=== PATIENT | male | born 1935 | race Caucasian/White ===

== ENCOUNTER 2020-04-23 19:24 | Inpatient (IN) | payer OTHER ==
[~2020-04-23] VITALS: Ht 182.9 cm; Wt 101.7 kg
[2020-04-23 19:38] VITALS: BP 206/102
[2020-04-23 20:09] LABS: ABSOLUTE BASOPHILS 0.1 thou/uL (0.0-0.2); ABSOLUTE EOSINOPHILS 0.2 thou/uL (0.0-0.7); ABSOLUTE LYMPHOCYTES 0.9 thou/uL (0.8-5.3); ABSOLUTE MONOCYTES 0.7 thou/uL (0.0-1.2); ABSOLUTE NEUTROPHILS 5.8 thou/uL (1.6-8.1); EOSINOPHILS 2.8 %; HEMATOCRIT 40.5 % (42.0-52.0); HEMOGLOBIN 13.7 gm/dL (14.0-18.0); LYMPHOCYTES 12.3 %; MCHC 33.9 g/dL (28.0-37.0); MCV 88.4 fL (80.0-100.0); MONOCYTES 8.8 %; MPV 8.6 fl. (7.2-11.1); NUCLEATED RBCS 0 /100WBC; PLATELET COUNT* 166 thou/uL (150-400); POLYS 75.1 %; RBC 4.58 mil/uL (4.50-6.00); WBC 7.7 thou/uL (4.0-11.0)
[2020-04-23 20:11] LABS: CALCIUM 7.9 mg/dL (8.5-10.1); CREATININE 1.5 mg/dL (0.6-1.3); INR 1.1; POTASSIUM 3.8 mmol/L (3.5-5.1); PROTIME 10.9 Seconds (9.20-11.50)
[2020-04-23 20:16] LABS: ALBUMIN 3.1 g/dL (3.4-5.0); TOTAL BILIRUBIN 0.2 mg/dL (<0.1-1.0); TOTAL PROTEIN 6.6 g/dL (6.4-8.2)
[2020-04-23 21:45] LABS: URINE BILIRUBIN NEGATIVE (Negative); URINE BLOOD 1+ (Negative); URINE CLARITY CLEAR; URINE COLOR YELLOW; URINE GLUCOSE-RANDOM 2+ (Negative); URINE KETONES NEGATIVE (Negative); URINE LEUKOCYTES-REFLEX NEGATIVE (Negative); URINE NITRITE-REFLEX NEGATIVE (Negative); URINE PROTEIN NEGATIVE (Negative); URINE SPECIFIC GRAVITY 1.015 (1.005-1.030); URINE UROBILINOGEN 0.2 E.U./dl (0.2-1.0)
[2020-04-23 22:19] LABS: BACTERIA-REFLEX None Seen /HPF (None Seen); CASTS None Seen /LPF (None Seen); CRYSTALS None Seen /LPF (None Seen); SQUAMOUS 0-3 Few /LPF (0-3); URINE RBC 3-10 Few /HPF (0-2); URINE WBC-REFLEX None Seen /HPF (0-5)
[2020-04-24 01:35] VITALS: BP 171/90
[2020-04-24 02:30] VITALS: BP 166/80
--- NOTE | 2020-04-24 07:46 | NUR ---
RECIEVED REPORT FROM JOAQUIM SPRINGER. PT TRANSFERRED TO 232. PT A&OX4. VSS. ADMISSION HISTORY & PHYSICAL ASSESSMENT COMPLETED AND CHARTED. ORIENTED TO ROOM & CALL LIGHT. PT ON RA. PT ON MEDSURG STATUS. PT COMPLAINED OF RIGHT HIP & BACK PAIN-MED GIVEN PER MAR. FALL PRECAUTIONS IN PLACE. CALL LIGHT WITHIN REACH.
[2020-04-24 07:55] VITALS: BP 204/106
[2020-04-24] MEDS ORDERED: LIPITOR 20 MG T20 M1 PO (10:13)
[2020-04-24] MEDS ORDERED: METFORMIN HCL500 M3 PO (10:13)
[2020-04-24] MEDS ORDERED: ASA81BEC PO (10:14)
[2020-04-24] MEDS ORDERED: PROSCAR 5MG TABL5 M1 PO (10:15)
[2020-04-24] MEDS ORDERED: FLOMAX0.4 MG PO (10:16)
[2020-04-24] MEDS ORDERED: GLIPIZIDE 10 MG10 MG PO ×2 (10:16→10:17)
[2020-04-24] MEDS ORDERED: MYSOLINE50 MG PO (10:18)
[2020-04-24] MEDS ORDERED: DILTIAZEM ER180 M2 PO (10:18)
--- NOTE | 2020-04-24 11:42 | EKG ---
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: : 1935 Requested By: Tara Smith Order Number: [id number] MD: Tuan Arredondo Measurements Intervals [place] Rate: 78 P: 63 W[place]: 185 QRS: 62 QRSD: 115 T: 44 QT: 432 QTc: 493 Interpretive Statements Sinus rhythm Multiple premature complexes, vent & supraven Nonspecific intraventricular conduction delay Borderline low voltage, extremity leads Baseline wander in lead(s) II,III,aVR,aVL,aVF,V4 No previous ECG available for comparison Electronically Signed On 04-24-2020 11:42:19 CDT by Tuan Arredondo [email or web address] <ELECTRONICALLY SIGNED> By: Tuan Arredondo MD, FACC 04/24/20 1142 14 14 Tuan Arredondo MD, FAC /EPI
[2020-04-24 12:00] VITALS: BP 118/72
--- NOTE | 2020-04-24 12:27 | 2DMMODE ---
[place] [address] 2 D/M-MODE ECHOCARDIOGRAM Name: BRENDA LIGHT Room: [address] Gt#: [id number] Admission: 04/24/20 Attend Phys: Yon Ayers, Discharge: Date of : 33 Date of Service: 04/24/20 1227 Report #: [id number] THIS REPORT FOR: cc: FAM - Family physician unknown FAM - Family physician unknown Tuan Arredondo MD [facility] ~ APPROVED REPORT Study performed: 04/24/2020 11:38:27 EXAM: Comprehensive 2D, Doppler, and color-flow Echocardiogram Patient Location: In-Patient Room #: [facility] Status: routine BSA: 2.25 HR: 76 bpm BP: 204/106 mmHg Rhythm: NSR Other Information Study Quality: Technically Limited Technically limited study due to patient could not tolerate procedure, off axis parasternal view. Indications Syncope Aortic Valve AoV Peak García.: 1.85 m/s AO Peak Gr.: 13.62 mmHg LVOT Max P.93 mmHg AO Mean Gr.: 6.74 mmHg LVOT Mean P.42 mmHg LVOT Max V: 0.86 m/s AO V2 VTI: 33.01 cm LVOT Mean V: 0.55 m/s LVOT V1 VTI: 18.13 cm Mitral Valve E/A Ratio: 0.68 MV Decel. Time: 211.34 ms MV E Max García.: 0.74 m/s MV PHT: 61.29 ms MVA (PHT): 3.59 cm2 TDI E/Lateral E': 6.73 E/Medial E': 7.40 [place] [address] 2 D/M-MODE ECHOCARDIOGRAM Name: BRENDA LIGHT Room: [address] M.R.#: [id number] Admission: 04/24/20 Attend Phys: Yon Ayers, Discharge: Date of : 33 Date of Service: 04/24/20 1227 Report #: [id number] Medial E' García.: 0.10 m/s Lateral E' García.: 0.11 m/s Left Ventricle The left ventricle is normal size. endocardium was not well visualized making segmental wall motion ananlysis difficult There is normal left ventricular wall thickness. The left ventricular systolic function is normal. The left ventricular ejection fraction is within the normal range. Grade I - abnormal relaxation pattern. Right Ventricle The right ventricle is normal size. The right ventricular systolic function is normal. Atria The left atrium size is normal. The right atrium size is normal. Aortic Valve Aortic valve is not well visualized. No aortic regurgitation is present. Mitral Valve There is mitral annular calcification. There is trace mitral valve regurgitation noted. Tricuspid Valve Tricuspid valve is not well visualized. Unable to assess PA pressure. Trace tricuspid regurgitation. Pulmonic Valve Pulmonic valve is not visualized. Great Vessels Aortic root is not well visualized. IVC is normal in size and collapses >50% with inspiration. Pericardium There is no pericardial effusion. <Conclusion> [place] [address] 2 D/M-MODE ECHOCARDIOGRAM Name: BRENDA LIGHT Room: [address]#: [id number] Admission: 04/24/20 Attend Phys: Yon Ayers, Discharge: Date of : 33 Date of Service: 04/24/20 1227 Report #: [id number] The left ventricular systolic function is normal. The left ventricular ejection fraction is within the normal range. <ELECTRONICALLY SIGNED> By: Tuan Arredondo MD, FACC 04/24/20 1227 122 26 Tuan Arredondo MD, FAC /INF
--- NOTE | 2020-04-24 15:52 | NUR ---
CM SPOKE TO THE PATIENT TO DISCUSS HOME SITUATION, DISCHARGE PLANNING, AND TO INFORM OF THE ROLE OF CM. PT ALERT, ORIENTED, AND INDEPENDENT WITH ADL'S. PT RESIDES AT HOME ALONE AND HIS SON COMES TO HIS HOME TO CHECK ON HIM DAILY, AND PROVIDES MEAL FOR HIM. PT HAS 0 HX OF HH OR SNF, AND PLANS TO RETURN HOME AT D/C. PT INFORMS THAT HE MAY BE OPEN TO HH AT D/C. CM WILL REMAIN AVAILABLE TO ASSIST AND FOLLOW NEEDED.
[2020-04-24 16:00] VITALS: BP 125/76
[2020-04-24 20:00] VITALS: BP 146/74
[2020-04-25 02:06] LABS: GLYCOHEMOGLOBIN (HGB A1C) 7.2 % (4.8-5.6)
[2020-04-25 03:43] VITALS: BP 164/77
--- NOTE | 2020-04-25 05:37 | NUR ---
ASSUMED PT CARE AT APPROX 1930. PT IS AWAKE AND ORIENTED X4, FORGETFUL AND IS HARD OF HEARING. PT C/O LOWER BACK PAIN THAT IS RELIEVED BY PAIN MEDICINE GIVEN PER NOV. PT IS ABLE TO SLEEP MOST OF THE NIGHT. NO ACUTE CHANGES THROUGHOUT THIS SHIFT. CALL LIGHT WITHIN REACH. HIGH FALL PRECAUTIONS IN PLACE. HOURLY ROUNDING DONE FOR PT SAFETY.
[2020-04-25 08:30] VITALS: BP 138/71
[2020-04-25 16:37] VITALS: BP 127/61
--- NOTE | 2020-04-25 17:31 | NUR ---
PT IS ALERT AND ORIENTED BUT HARD OF HEARING PAIN MEDS GIVEN X2 WITH RELIEF PT BECOMES VERY UNCOMFORTABLE IF NOT GIVEN TO HIM ACHS STOOD UP TO USE URINAL A FEW TIMES BUT HAS DIFFICULTY ON MEDS FOR RETENTION CALL LIGHT IN REACH
[2020-04-25 20:00] VITALS: BP 148/67
[2020-04-26] VITALS: BP 134/83
--- NOTE | 2020-04-26 05:06 | NUR ---
ASSUMED PT CARE AT APPROX 1930. PT IS AWAKE AND ORIENTED X4, FORGETFUL AND IS HARD OF HEARING.PT IS NOT IN RESPIRATORY DISTRESS. PT C/O LOWER BACK PAIN THAT IS RELIEVED BY PAIN MEDS GIVEN PER MAR. NO ACUTE CHANGES THROUGHOUT THIS SHIFT. CALL LIGHT WITHIN REACH. HIGH FALL PRECAUTIONS IN PLACE, HOURLY ROUNDING DONE FOR PT SAFETY.
[2020-04-26 08:20] VITALS: BP 149/65
--- NOTE | 2020-04-26 17:17 | NUR ---
PT IN ROOM 111 NOW REPORT GIVEN TO SARA SPRINGER NO CONCERNS OR QUESTIONS AT THIS TIME
--- NOTE | 2020-04-26 18:16 | NUR ---
PT A&Ox4, HARD OF HEARING. UP WITH 1 ASSIST. ON RA. PAIN PARTIALLY CONTROLLED WITH NORCO. PT RESTING IN BED SINCE TRANSFER FROM [facility]. FALL PRECAUTIONS IN PLACE. CALL LIGHT WITHIN REACH. WILL CONTINUE TO MONITOR.
[2020-04-26 19:45] VITALS: BP 179/89
--- NOTE | 2020-04-27 04:50 | NUR ---
PATIENT HAS REMAINED ALERT AND ORIENTED X 4 WITH SOME FORGETFULNESS. FALL PRECAUTIONS IN PLACE. HAS SET OFF BED ALARM...FORGETTING TO CALL HE PREPARES TO GET UP TO BSC. TRANSFERING WITH ASSIST OF ONE, GAIT BELT AND WALKER. EASILY FATIGUED. MEDICATED FOR BACK PAIN X 2 TO GOOD EFFECT. MEDICATED FOR CONSTIPATION HS...AWAITING RESULTS. CONTINUE TO MONITOR.
[2020-04-27] MEDS ORDERED: HYDROCODON-ACE1 EAC7 PO (07:52)
[2020-04-27] MEDS ORDERED: LIDOPATCH1 EACH TOP (07:52)
[2020-04-27] MEDS ORDERED: FOLIC ACID1 MG PO (07:52)
[2020-04-27] MEDS ORDERED: LEVAQUIN 500 M500 M3 PO (07:52)
[2020-04-27 07:59] VITALS: BP 153/95
--- NOTE | 2020-04-27 13:31 | CON ---
[address] [address] CONSULTATION Name: KULDEEPBRENDA Annabelle Room: [address] IN M.R.#: [id number] Admission: 04/24/20 Attend Phys: Yon Ayers MD Discharge: Date of : 33 Report #: [id number] THIS REPORT FOR: //name// cc: Azam Healy MD, Jason MD ~ THIS REPORT FOR: //name// CC: Yon Healy DATE OF SERVICE: 04/24/2020 CARDIOLOGY CONSULTATION HISTORY OF PRESENT ILLNESS: The patient is an 85-year-old white male who I was asked to see in the hospital today after he apparently fell. The history is obtained from the patient. There are no family members available. There are no old records. The patient states recently he has been weak. He is not very active because of his age. He uses a walker. He notes that yesterday afternoon, he went to the bathroom. After urinating in the bathroom, he felt lightheaded and fell backwards landing on his rear. He complained of pain in his hip. He denied hitting his head. He apparently had no loss of consciousness. When his son arrived, it took a long time to get the patient out to the car. He was brought here to [place] for further evaluation and treatment. There was no seizure activity. Denied any recent fever, cough, vomiting, diarrhea, or bleeding. He denies a history of heart disease. Denied any chest pain, shortness of breath, or palpitations. PAST MEDICAL HISTORY: He has had tonsillectomy and appendectomy. He has a history of diabetes and he is on a pill. ALLERGIES: He has no known drug allergies. FAMILY HISTORY: Negative for heart disease. SOCIAL HISTORY: He is . His is in a intermediate. He quit smoking 20 years ago. No alcohol abuse. 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 REVIEW OF SYSTEMS: He has had no history of stroke, asthma, liver disease, kidney disease, chronic skin condition or cancer. He has a hearing aid. He wears glasses. He does have a tremor. He denies a history of Parkinson's disease. PHYSICAL EXAMINATION: GENERAL: Revealed an elderly, frail-appearing male, lying in bed, who appeared in no [place] [address] CONSULTATION Name: BRENDA LIGHT Room: [address]#: [id number] Admission: 04/24/20 Attend Phys: Yon Ayers MD Discharge: Date of : 34 Report #: [id number] VITAL SIGNS: On arrival yesterday, his blood pressure was 160/90, pulse was 80. He was afebrile. HEENT: He was anicteric. Conjunctivae are pink. Mucous membranes are moist. NECK: Veins nondistended. No carotid bruits. Neck supple. CHEST: Clear to auscultation. CARDIOVASCULAR: Regular rate and rhythm. ABDOMEN: Obese. EXTREMITIES: Had trace edema. Dorsalis pedis pulses could not be palpated. SKIN: Cool and dry. NEUROLOGIC: Nonfocal. IMAGING DATA: His ECG on admission showed a sinus rhythm, occasional PAC and PVC, but no ST or T-wave changes were noted. His workup in the Emergency Room yesterday, he had a portable chest x-ray that showed normal heart size, atherosclerotic changes in the aorta, no acute abnormality. LABORATORY DATA: His lab work in the Emergency Room; sodium 137, BUN 16, creatinine 1.5, glucose 275. Troponin 0.06. White blood cell count 7.7, hematocrit 40.5. IMPRESSION AND RECOMMENDATIONS: 1. Fall. No evidence of syncope. Recommend no further cardiac evaluation. 2. Tremor. Rule out Parkinson's disease. 3. Diabetes. 4. Hypertension. We would recommend starting medications. 5. Previous tobacco abuse. <ELECTRONICALLY SIGNED> By: Tuan Arredondo MD, FACC 04/27/20 1331 0857 [id number] Arredondo MD, FACC /nt
[2020-04-27 15:48] VITALS: BP 148/84
--- NOTE | 2020-04-27 16:00 | NUR ---
PT.HAS REHAB CONSULT. SHARLA/REHAB WILL INITIATE INS.AUTHROIZATION. DISCUSSED WITH SON. HE IS UNSURE IF HE WOULD WANT HIS DAD TO GO TO SNF AT DISCHARGE. HE SAID PTS IS IN THE [place] AND HAS BEEN FOR 4 YRS. SON WOULD HATE TO NOT BE ABLE TO SEE HIS DAD DUE TO COVID RESTRICTIONS. HE MAY JUST TAKE HIM HOME WITH HOME HEATLH. HE DID NOT WANT A REFERRAL MADE TO THE [place] AT THIS TIME.
--- NOTE | 2020-04-27 16:30 | CON ---
[address] [address] CONSULTATION Name: BRENDA LIGHT Room: [address] IN .R.#: [id number] Admission: 04/24/20 Attend Phys: Yon Ayers MD Discharge: Date of : 34 Report #: [id number] THIS REPORT FOR: //name// cc: Azam Healy MD, Jason MD ~ THIS REPORT FOR: //name// CC: Yon Healy DATE OF SERVICE: 04/26/2020 REASON FOR CONSULTATION: Thyroid nodule. REQUESTING PHYSICIAN: Dr. Ayers. HISTORY OF PRESENT ILLNESS: The patient is an 85-year-old man who is admitted to the hospital after having syncopal episode. He had imaging studies done, which showed left upper lobe nodule 1 cm, noncalcified as well as a thyroid nodule 1.2 cm. Ultrasound was done, which showed 1.2 cm hypoechoic nodule, left to isthmus. Oncology consult is requested. He has complaints of weakness. Denies cough. Denies weight loss. PAST MEDICAL HISTORY: Significant for hypercholesterolemia, diabetes mellitus, hypertension, BPH. SOCIAL HISTORY: He is a former smoker. Does not smoke currently. REVIEW OF SYSTEMS: See above. PHYSICAL EXAMINATION: GENERAL: Reveals a well-developed, well-nourished elderly man, not in acute distress. VITAL SIGNS: Blood pressure 149/65, heart rate 70, temperature 97.5, respirations 16. HEENT: Does not reveal thrush. NECK: Supple. HEART: Normal S1, S2. LUNGS: Clear. ABDOMEN: Obese. EXTREMITIES: Lower extremities, no edema. MENTAL STATUS: Alert, oriented. LABORATORY DATA: White count 7.7, hemoglobin 13.7, platelets 166. BUN 16, creatinine 1.5. Chest CT reviewed, shows noncalcified nodule in the left upper lobe 1 cm. Thyroid ultrasound reviewed. Results [place] [address] CONSULTATION Name: BRENDA LIGHT Room: [address] IN [facility]#: [id number] Admission: 04/24/20 Attend Phys: Yon Ayers MD Discharge: Date of : 34 Report #: [id number] ASSESSMENT AND PLAN: 1. Pulmonary nodule. The patient is under care of engineer chief. According to pulmonary notes, he is scheduled to have a PET scan. I agree with management. 2. Thyroid nodule. Recommend to refer the patient to ENT if the PET scan results are available, depending on PET scan findings. Thank you very much for allowing me to participate in care of this patient. <ELECTRONICALLY SIGNED> By: Francie Canela MD 04/27/20 1630 2121 [id number] Parra MD /nt
--- NOTE | 2020-04-27 18:32 | NUR ---
PT A&Ox4, FORGETFUL. UP WITH 1 USING GB AND WALKER. TOLERATING DIET. PAIN CONTROLLED WITH NORCO. DENIED N/V. PENDING REHAB CONSULT. FALL PRECAUTIONS IN PLACE. CALL LIGHT WITHIN REACH. WILL CONTINUE TO MONITOR
[2020-04-27 21:30] VITALS: BP 153/91
--- NOTE | 2020-04-28 07:16 | NUR ---
PATIENT HAS SLEPT OFF AND ON DURING THE NIGHT. VSS ON RA. MEDICATIONS GIVEN ORDERED AND CHARTED. PAIN MEDICATION GIVEN FOR C/O BACK PAIN WHICH IS CHRONIC. PATIENT IS UP WITH SBA WITH WALKER. PATIENT USING BEDSIDE URINAL FALL PRECAUTIONS IN PLACE. IV IN RIGHT FOREARM-SL. PATIENT INSTRUCTED TO USE CALL LIGHT WHEN NEEDING ASSISTANCE. HOURLY ROUNDS MADE. WILL CONTINUE WITH PLAN OF CARE AND NURSING TO MONITOR.
[2020-04-28 08:00] VITALS: BP 169/86
--- NOTE | 2020-04-28 14:53 | NUR ---
Spoke to Dr Lake about P2P need, per Leidy Knight request. is doing the P2P for the IP acute rehab denial from insurance. Stated she had the number to call.
[2020-04-28 16:00] VITALS: BP 182/64
--- NOTE | 2020-04-28 18:25 | NUR ---
PATIENT ALERT AND ORIENTED X4. VSS ON ROOM AIR. COMPLAINT OF PAIN MANAGED WITH ORAL PAIN MEDICATION. PATIENT UP WITH WALKER TO USE BEDSIDE COMMODE AND USING URINAL AT BEDSIDE. FALL PRECAUTIONS IN PLACE. CALL LIGHT WITHIN REACH. HOURLY ROUNDS COMPLETED. WILL CONTINUE PLAN OF CARE.
[2020-04-29 07:45] VITALS: BP 134/78
--- NOTE | 2020-04-29 08:05 | NUR ---
PATIENT HAS RESTED WELL THROUGHOUT THE NIGHT. VSS ON RA. NO C/O PAIN DURING THE SHIFT. MEDICATIONS GIVEN ORDERED AND CHARTED. PATIENT IS UP WITH SBA WITH WALKER AND USES URINAL. IV IN RIGHT FOREARM-SL. PATIENT INSTRUCTED TO USE CALL LIGHT WHEN NEEDING ASSISTANCE. FALL PRECAUTIONS IN PLACE AND HOURLY ROUNDS MADE. WILL CONTINUE WITH PLAN OF CARE AND NURSING TO MONITOR.
--- NOTE | 2020-04-29 12:08 | NUR ---
DOING PEER TO PEER FOR DENIAL OF ACUTE REHAB AUTH WITH INSURANCE AT 1400 TODAY. CM WILL SPEAK WITH PT.AND SON REGARDING OPTIONS IF REHAB CONTINUES TO BE DENIED.
[2020-04-29 15:42] VITALS: BP 124/65
--- NOTE | 2020-04-29 16:14 | NUR ---
A&OX 4, PW&D. LIDODERM PATCH PLACED ON LOWER BACK THIS AM. UP WITH WALKER AND STAND BY ASSIST. REG. HEART TONE, +BS, LUNGS CLEAR UPPER AND DIMINISHED IN BASES ON ROOM AIR. TREMORS NOTED IN HANDS. 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 NO C/O WILL CONTINUE TO MONITOR. ANSWER'S SON'S QUESTIONS WHEN HE WAS HERE.
--- NOTE | 2020-04-29 17:13 | NUR ---
NOTIFIED BY ,EARLIER THAT PEER TO PEER WAS DENIED BY INSURANCE. CALLED SON,TAVO AND DISCUSSED. HE IS NOT SURE WHAT HE WANTS TO DO. HE IS LEANING TOWARDS BRINGING HIS DAD HOME WITH HOME HEALTH. HE DOES NOT LIKE THE IDEA OF NOT BEING ABLE TO VISIT HIM IF HE WENT TO A SNF. HE UNDERSTANDS THEY ARE ALL LIKE THAT HOWEVER. HE WANTS TO SPEAK WITH HIS DAD AND BROTHER. HE WILL CALL IN AM WITH DECISION.
--- NOTE | 2020-04-29 18:05 | NUR ---
PER DOCTOR ORDER IV RIGHT FOREARM DC'D WITH CATH CANNULA INTACT. PRESSURE APPLIED UNTIL BLEEDING CEASED AND COTTON BALL AND TAPE APPLIED.
[2020-04-29 20:30] VITALS: BP 158/91
--- NOTE | 2020-04-30 06:53 | NUR ---
PATIENT HAS SLEPT WELL THROUGHOUT THE NIGHT. VSS ON RA. MEDICATIONS GIVEN ORDERED AND CHARTED. PATIENT IS UP WITH SBA WITH WALKER AND USES URINAL. FALL PRECAUTIONS IN PLACE AND HOURLY ROUNDS MADE. WILL CONTINUE WITH PLAN OF CARE AND NURSING TO MONITOR.
[2020-04-30 07:40] VITALS: BP 160/96
[2020-04-30 10:21] VITALS: BP 160/96
--- NOTE | 2020-04-30 12:18 | NUR ---
VM FROM SON THIS AM. HE WANTS TO BRING HIS DAD HOME WITH HOME HEALTH INSTEAD OF HIM GOING TO SNF. HE WILL BE ABLE TO STAY WITH DAY FOR AWHILE UNTIL HE GETS ACCLAMATED TO BEIN HOME AND TO SEE HOW HE DOES WITH HH. HE CHOSE ANY HH THAT TAKES HIS DADS INSURANCE. [facility] TAKES INSURANCE BUT THEY ARE CAPPED OUT AT THIS TIME. [facility] TAKES PT.INSURANCE. FAXED REFERRAL AND DISCHARGE ORDERS TO INTAKE AT [facility] [phone]. INFORMATION PUT IN DISCHARGE INSTRUCTIONS. SON STATED HE HAS AN APPT AT 2PM AND WILL PICK HIM UP AFTER 3:30. NURSING INFORMED.
--- NOTE | 2020-04-30 16:36 | NUR ---
PATIENT ALERT AND ORIENTED X4. VSS ON ROOM AIR. NO COMPLAINTS OF PAIN. PATIENT UP WITH ASSISTANCE WITH WALKER AND GAIT BELT TO BEDSIDE COMMODE. PROGRESSED TOWARD GOALS. PATIENT DISCHARGED AT 1600 WITH ALL PERSONAL BELONGINGS, PRESCRIPTIONS AND DISCHARGE INFORMATION.
--- NOTE | 2020-05-03 20:23 | CON ---
[address] [address] CONSULTATION Name: LIGHTBRENDA Annabelle Room: [address] IN .R.#: [id number] Admission: 04/24/20 Attend Phys: Yon Ayers MD Discharge: 04/30/20 Date of : 33 Report #: [id number] THIS REPORT FOR: //name// cc: Azam Healy MD, Jason MD ~ THIS REPORT FOR: //name// CC: Yon Healy DATE OF SERVICE: 04/24/2020 CONSULT REQUESTED BY: Dr. Lake. INDICATION FOR CONSULTATION: Lung nodule. HISTORY OF PRESENT ILLNESS: This is an 85-year-old gentleman. He does have a previous history of smoking for several decades, but he discontinued in 1983 and the patient does not have a previous history of cardiac or respiratory disease. The patient is now admitted after a fall. He has had severe pain in his right hip, although initial studies have not shown any obvious fracture, the patient is in the hospital for management of severe pain. He had evaluation of his spine as well as a chest x-ray performed as a result of this fall and an incidental finding on these studies was a lung nodule. The patient subsequently did have a CT chest performed as well and there is a 1 cm lung nodule, which is noncalcified in his left lung. The patient is noted to have a suspicious thyroid nodule as well. The patient at this time denies any respiratory complaints. He has no shortness of breath or cough. No upper respiratory complaints. No fever or chills. No swelling of lower extremities or calf pain. REVIEW OF SYSTEMS: The patient did state that he felt dizzy prior to his fall. The patient answered to the negative for 12 questions for review of systems except as mentioned above. He does state that he has had some muscle and joint pains. PAST MEDICAL HISTORY: Diabetes, tonsillectomy, and appendectomy. SOCIAL HISTORY: He has an extensive history of smoking up to a pack a day for several decades, but he also discontinued in 1983. He has been a nonsmoker since then. No known history of heavy alcohol use or illegal drug use. 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 CURRENT MEDICATIONS: List in [facility] reviewed. HOME MEDICATIONS: [place] [address] CONSULTATION Name: BRENDA LIGHT Room: [address]#: [id number] Admission: 04/24/20 Attend Phys: Yon Ayers MD Discharge: 04/30/20 Date of : 34 Report #: [id number] ALLERGIES: No known drug allergies. FAMILY HISTORY: Negative for heart disease. PHYSICAL EXAMINATION: GENERAL: He is hard of hearing. He is alert, awake, and oriented. VITAL SIGNS: He has a pulse of 69 and a blood pressure of 125/76. His respiratory rate is 18. He is afebrile with a temperature of 36.7. He is saturating 95%. He is not on supplemental oxygen. HEENT: Head is normocephalic and atraumatic. There is no throat erythema. NECK: Does not show raised JVP, asymmetry, mass or lymph nodes. CHEST: Symmetrical expansion on inspection and palpation. On auscultation, chest is clear. HEART: Regular. There is no murmur. ABDOMEN: Soft and nontender. EXTREMITIES: Lower extremities show no edema and no calf tenderness. LABORATORY DATA: The patient's CT chest performed as well as report are reviewed and are as discussed below. The patient's chest x-ray films and report are also reviewed. The patient also had a thyroid ultrasound, spine CT as well as hip CT, all of these reports are in [facility] and I reviewed them. The patient's CBC as well as chemistries are in [employer]. These are reviewed. Coagulation studies are also in [facility], reviewed. Urinalysis in [facility], reviewed. His COVID-19 screen was negative. ASSESSMENT AND PLAN: 1. Left lung nodule. I recommend obtaining a PET scan from skull base to mid thighs as an outpatient upon discharge from this admission. I will be happy to see this patient in the office with the PET scan results and then evaluate further. 2. Thyroid nodule. The patient also does have a suspicious thyroid nodule. This appears to be a likely unrelated pathology from the lung nodule above. This thyroid nodule appears to be superficial and can be approached using an ultrasound-guided biopsy. I would defer to the primary service as to whether the same is considered during this admission, now or later as an outpatient. As above, I would be happy to see the patient with a PET scan result in the office after his discharge. We will see him p.r.n. during this visit. Please call anytime if there are any questions. Thanks for this consultation. <ELECTRONICALLY SIGNED> By: Marcelo Perez MD 05/03/202022 2147 2244Aangel Perez MD /nt
== END 2020-04-30 16:00 | disposition home health service (06) | DRG 178 ==
LOC: M.ERS 19:24 → M.TBA-ER 04-24 00:48 → M.2W 04-24 01:43 → M.ORTHSURG 04-24 13:03 → M.2W 04-24 13:03 → M.ORTHSURG 04-26 16:29
PROVIDERS: Emergency Medicine; Internal Medicine; ADMIT Internal Medicine; ATTEND Internal Medicine
DX: J15.6 Pneumonia due to other Gram-negative bacteria (principal); E44.1 Mild protein-calorie malnutrition; Z20.828 Contact with and (suspected) exposure to other viral communicable diseases; R25.1 Tremor, unspecified; R91.1 Solitary pulmonary nodule; E04.1 Nontoxic single thyroid nodule; I12.9 Hypertensive chronic kidney disease with stage 1 through stage 4 chronic kidney disease, or unspecified chronic kidney disease; R91.8 Other nonspecific abnormal finding of lung field; M25.551 Pain in right hip; E11.22 Type 2 diabetes mellitus with diabetic chronic kidney disease; N18.3 Chronic kidney disease, stage 3 (moderate); Z90.49 Acquired absence of other specified parts of digestive tract; Z79.82 Long term (current) use of aspirin; Z79.899 Other long term (current) drug therapy; S70.01XA Contusion of right hip, initial encounter; W18.39XA Other fall on same level, initial encounter; Y93.89 Activity, other specified; Y92.89 Other specified places as the place of occurrence of the external cause; Y99.8 Other external cause status

== ENCOUNTER 2021-01-14 17:22 | Inpatient (IN) | payer OTHER ==
[~2021-01-14] VITALS: Ht 182.9 cm; Wt 94.3 kg
[~2021-01-14 17:22] MED LIST: ASA81BEC PO; DILTIAZEM ER180 M2 PO; FLOMAX0.4 MG PO; FOLIC ACID1 MG PO; GLIPIZIDE 10 MG10 MG PO; HYDROCODON-ACE1 EAC7 PO; LEVAQUIN 500 M500 M3 PO; LIDOPATCH1 EACH TOP; LIPITOR 20 MG T20 M1 PO; METFORMIN HCL500 M3 PO; MYSOLINE50 MG PO; PROSCAR 5MG TABL5 M1 PO
[2021-01-14 17:30] VITALS: BP 112/71
[2021-01-14 17:44] LABS: HEMATOCRIT 32.9 % (42.0-52.0); HEMOGLOBIN 10.6 gm/dL (14.0-18.0); MCH 29.3 pg (26.0-34.0); MCHC 32.4 g/dL (28.0-37.0); MCV 90.6 fL (80.0-100.0); MPV 8.6 fl. (7.2-11.1); NUCLEATED RBCS 0 /100WBC; PLATELET COUNT* 303 thou/uL (150-400); RBC 3.63 mil/uL (4.50-6.00); RDW-CV 14.2 % (10.5-14.5); WBC 14.3 thou/uL (4.0-11.0)
[2021-01-14 17:54] LABS: CALCIUM 8.1 mg/dL (8.5-10.1); CREATININE 1.7 mg/dL (0.6-1.3); POTASSIUM 4.8 mmol/L (3.5-5.1)
[2021-01-14 17:55] LABS: APTT 38.3 Seconds (25.0-31.3); INR 1.3; PROTIME 13.6 Seconds (9.20-11.50)
[2021-01-14 18:05] LABS: ABSOLUTE EOSINOPHILS 0.1 thou/uL (0.0-0.7); ABSOLUTE LYMPHOCYTES 0.6 thou/uL (0.8-5.3); ABSOLUTE MONOCYTES 0.9 thou/uL (0.0-1.2); ABSOLUTE NEUTROPHILS 12.7 thou/uL (1.6-8.1); ALBUMIN 2.1 g/dL (3.4-5.0); MAGNESIUM 2.3 mg/dL (1.8-2.4); PLATELET ESTIMATE ADEQUATE; TOTAL BILIRUBIN 0.5 mg/dL (<0.1-1.0); TOTAL PROTEIN 6.2 g/dL (6.4-8.2)
[2021-01-14] MEDS ORDERED: TYLENOL325 M1 PO (18:17)
[2021-01-14] MEDS ORDERED: PROAIR HFA8.5 GM INH (18:18)
[2021-01-14] MEDS ORDERED: AMIODARONE HCL400 MG PO ×2 (18:20→18:21)
[2021-01-14] MEDS ORDERED: CEFDINIR300 MG PO (18:21)
[2021-01-14] MEDS ORDERED: PLAVIX 75 MG TA75 MG PO (18:22)
[2021-01-14] MEDS ORDERED: HUMALOG100 UNIT/1 SUBQ (18:23)
[2021-01-14] MEDS ORDERED: IPRATROPIUM BRO30 ML INH (18:27)
[2021-01-14] MEDS ORDERED: TOPROL XL25 MG PO (18:28)
[2021-01-14 20:30] VITALS: BP 116/76
[2021-01-14 21:00] VITALS: BP 113/72
--- NOTE | 2021-01-14 21:00 | NUR ---
RECEIVED REPORT FROM ER, PT TO ROOM PER BED. UNABLE TO ASSIST WITH TRANSFER. PT ORIENTED TO PERSON ONLY AND HIS . COOPERATIVE. TELEMETRY APPLIED SHOWING SR WITH BBB. HEPARTIN INFUSING AT 1000 UNITS PER HOUR. PT CONSTANTLY REPEATING HELP ME, HELP ME. WHEN ASKED STATES JUST KILL ME. REASSURANCE GIVEN AND THAT HE IS IN THE HOSPITAL. SEE ADMISSION ASSESSMENT AND HX. WILL CONT TO MONITOR AND ASSIST NEEDED.
[2021-01-15] VITALS (8 sets, daily range): BP systolic 90–138; BP diastolic 63–74
--- NOTE | 2021-01-15 05:39 | NUR ---
SLEEPING FAIRLY WELL. WHEN AWAKEN FOR CARE, HOWLERS OUT HELP ME. TROP REMAINS ELEVATED WITH HEPARIN INFUSING. PT HAD A VERY RECENT CARDIAC CATH WITH STENT PLACEMENT. DENIES CHEST PAIN. ASSISTED WITH REPOSITIONING. WOUND TO BUTTOCK NOTED WITH MERPLEX APPLIED. TELEMETRY CONT TO SHOW SR WITH BBB. NO CHANGES SINCE ADMISSION. HOURLY ROUNDING OBSERVED.
--- NOTE | 2021-01-15 06:19 | NUR ---
PT ONLY VOIDED SM AMT OF INCONT URINE THIS NIGHT. BLADDER SCAN FOR 419 CC OF RETAINED URINE. PT DENIES DISCOMFORT.
--- NOTE | 2021-01-15 10:49 | EKG ---
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: [facility] : 1935 Requested By: Bud Rodríguez Order Number: [id number] MD: Tuan Arredondo Measurements Intervals [place] Rate: 79 P: 4 SC: 205 QRS: 73 QRSD: 156 T: 58 QT: 418 QTc: 480 Interpretive Statements Sinus rhythm old anterior infarction Atrial premature complexes Right bundle branch block Compared to ECG 04/23/2020 20:15:23 Atrial premature complex(es) now present Right bundle-branch block now present Electronically Signed On 01-15-2021 10:49:01 CDT by Tuan Arredondo [email or web address] <ELECTRONICALLY SIGNED> By: Tuan Arredondo MD, [facility] 01/15/21 1049 1725 1725 Tuan Arredondo MD, [facility] /EPI
--- NOTE | 2021-01-15 14:22 | NUR ---
Pt confused today. Pt has been at [facility] skilled, will likely need to return at dc, pending insurance auth. Therapies will need to see. Pt normally resides at home. Supportive son. Hx of Spectrum . Cardiology following. Monitor mentation. No weekend dc planned.
--- NOTE | 2021-01-15 14:46 | CON ---
[address] [address] CONSULTATION Name: BRENDA LIGHT Room: [address] IN M.R.#: [id number] Admission: 01/14/21 Attend Phys: Praveen Brunner Discharge: Date of : 33 Report #: [id number] THIS REPORT FOR: cc: Azam Healy MD, Jason MD Blick,Tuan Andrews MD [facility] ~ DOC #: [id number] cc: MD Tuan Watson MD [facility] DATE OF CONSULTATION: 01/15/2021 CARDIOLOGY CONSULTATION HISTORY OF PRESENT ILLNESS: The patient is an 85-year-old white male who I was asked to see in the hospital today after he was noted to have an abnormal troponin level. The history is obtained from the old records. There are no family members available. The patient is confused and he is not sure which hospital he is at or what date this is. He is not sure why he was brought to the hospital last night. The patient has had several hospitalizations here at [place] in the past. I actually saw him in consultation in last April. He apparently had fallen and was very weak. He uses a walker. He apparently hit his head. There was no loss of consciousness. There was no seizure activity. He had a history of diabetes, but no previous history of heart disease. He was evaluated and eventually discharged with hip pain. He was felt to have pneumonia. The patient was brought to the emergency room by paramedics. Apparently, he complained of chest pain. He was given nitroglycerin. There is no history of shortness of breath, palpitations or recent syncope. The patient denies any chest pain at this time. He was noted to have an abnormal troponin. I was asked to see him for further evaluation and treatment. PAST MEDICAL HISTORY: Significant for tonsillectomy, appendectomy, diabetes. CURRENT MEDICATIONS: Consisted of aspirin, Proscar, Lipitor, Flomax, glipizide, albuterol inhaler, amiodarone, Plavix, insulin, metoprolol. ALLERGIES: He has no known drug allergies. FAMILY HISTORY: From the old chart notes that there is no history of heart disease. SOCIAL HISTORY: He is . His is in a shelter. He quit smoking years ago. No alcohol abuse. 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 REVIEW OF SYSTEMS: No history of stroke, asthma, liver disease, [place] [address] CONSULTATION Name: BRENDA LIGHT Room: [address]#: [id number] Admission: 01/14/21 Attend Phys: Praveen Brunner Discharge: Date of : 33 Report #: [id number] or cancer. He has a hearing aid and wears glasses. He has a tremor. PHYSICAL EXAMINATION: GENERAL: Revealed an elderly, frail-appearing male, lying in bed. He appeared in no acute distress. VITAL SIGNS: He had a blood pressure of 116/76, pulse 84. He is afebrile. HEENT: He was anicteric. Conjunctivae pink. Mucous membranes moist. NECK: Veins do not appear distended. CHEST: Clear to auscultation. CARDIOVASCULAR: Regular rate and rhythm. No murmur. ABDOMEN: Soft. EXTREMITIES: Had trace edema. Dorsalis pedis pulse cannot be palpated. SKIN: Cool and dry. NEUROLOGIC: Nonfocal. LABORATORY DATA: His ECG on admission last night showed a sinus rhythm with a right bundle branch block. His workup, he had a portable chest x-ray in the emergency room that showed small effusion, mild cardiomegaly, mild venous congestion, some atelectasis. The patient actually had an echocardiogram performed a year ago in 04/2020 while he was here at [place] that showed normal left ventricular function. His lab work in the emergency room last night, he had a BUN of 55, creatinine 1.7, glucose is 278, SGOT 58, SGPT 134, albumin 2.1. His troponin on admission was 9.3, this morning is 9.54. BNP 27,951. TSH last year was 0.8. His white blood cell count 14.3, hemoglobin 10.6. IMPRESSION AND RECOMMENDATIONS: 1. Non-ST elevation myocardial infarction. In light of his severe dementia and advanced age, recommend a conservative approach. I would not recommend cardiac catheterization at this time. I would continue aspirin and consider adding Plavix. 2. Hyperlipidemia. The patient is on a statin drug. 3. Diabetes. 4. Use of amiodarone. We will attempt to obtain old records. Possible history of atrial fibrillation. The patient is on a beta donald. I would not recommend anticoagulation because of advanced age. 5. Severe dementia. 6. History of falls. Tuan Arredondo MD [facility] [address] CONSULTATION Name: BRENDA LIGHT Room: [address] IN M.R.#: [id number] Admission: 01/14/21 Attend Phys: Praveen Brunner Discharge: Date of : 33 Report #: [id number] <ELECTRONICALLY SIGNED> By: Tuan Arredondo MD, [facility] 01/15/21 1446 0742 [id number] Arredondo MD, [facility] /nt
--- NOTE | 2021-01-15 19:21 | NUR ---
ASSUMED PT CARE AT 073O. PT IS ALERT TO SELF. PT NOW A DNR. ASSESSMENT COMPLETED, PT WITH NO URINARY OUTPUT, C/O DISCOMFORT. NEW ORDER TO BLADDER SCAN, [address] A BROWN, PT TOLERATED WELL WHICH IS DRAINING DARK TEA COLORED URINE. PT DENIES ANY PAIN. PT ON CARB CONTROL DIET, INTAKE ENCOURAGED. PROPHYLACTIC DRESSING INTAKE TO GLUTEAL FOLD. PT ASSISTED WITH REPOSITIONING Q2H. SAFETY MEASURES IN PLACE.
--- NOTE | 2021-01-15 19:45 | NUR ---
RECEIVED REPORT AND ASSUMED CARE OF PT, ASSESSMENT COMPLETED. PT ORIENTED TO SELF ONLY, COOPERATIVE. ASSISTED WITH REPOSITIONING ONTO LT SIDE. C/O PAIN INTO BUTTOCK, PT HAS MOISTURE DERMATITIS, ZINC CREAM APPLIED. ENCOURAGED FLUIDS BUT ONLY SIPPING SM AMT. URINE PER BROWN DK TEA WITH BLOOD NOTED. TELEMETRY ON SHOWING SR WITH 1ST AVB AND BBB. WILL CONT TO MONITOR AND ASSIST NEEDED.
[2021-01-16 00:27] VITALS: BP 108/65
[2021-01-16 04:37] LABS: ABSOLUTE BASOPHILS 0.1 thou/uL (0.0-0.2); ABSOLUTE EOSINOPHILS 0.1 thou/uL (0.0-0.7); ABSOLUTE LYMPHOCYTES 0.6 thou/uL (0.8-5.3); ABSOLUTE MONOCYTES 1.4 thou/uL (0.0-1.2); ABSOLUTE NEUTROPHILS 14.5 thou/uL (1.6-8.1); BASOPHILS 0.4 %; EOSINOPHILS 0.5 %; HEMOGLOBIN 10.5 gm/dL (14.0-18.0); LYMPHOCYTES 3.8 %; MCH 28.8 pg (26.0-34.0); MCHC 31.8 g/dL (28.0-37.0); MCV 90.8 fL (80.0-100.0); MONOCYTES 8.4 %; NUCLEATED RBCS 0 /100WBC; PLATELET COUNT* 334 thou/uL (150-400); POLYS 86.9 %; RBC 3.64 mil/uL (4.50-6.00); RDW-CV 13.8 % (10.5-14.5); WBC 16.7 thou/uL (4.0-11.0)
[2021-01-16 04:54] VITALS: BP 111/63
[2021-01-16 05:12] LABS: ANION GAP 10 mmol/L (7-16); BUN 61 mg/dL (7-18); CALCIUM 8.8 mg/dL (8.5-10.1); CHLORIDE 99 mmol/L (98-107); CO2 22 mmol/L (21-32); CREATININE 1.7 mg/dL (0.6-1.3); GLUCOSE 198 mg/dL (70-99); POTASSIUM 4.8 mmol/L (3.5-5.1); SODIUM 131 mmol/L (136-145)
[2021-01-16 05:23] LABS: TROPONIN-I LEVEL 8.44 ng/mL (<0.06)
[2021-01-16 05:35] LABS: CHOLESTEROL 70 mg/dL (<200); HDL CHOLESTEROL 31 mg/dL (>40); LDL CHOLESTEROL 27 mg/dL (<100); TC:HDL 2.3 Ratio (Not establshd); TRIGLYCERIDE 61 mg/dL (<150); VLDL 12 mg/dL (<40)
[2021-01-16 05:38] LABS: SERUM ASSESSMENT Clear
--- NOTE | 2021-01-16 06:55 | NUR ---
AWAKE FREQ YELLING OUT, REASSURANCE GIVEN BUT CONT TO YELL. RESTLESS, REMOVING CLOTHING AND MONITOR OCC. BROWN REMAINS IN PLACE BUT CONT TO BE BLOODY. TELEMETRY SHOWING SR WITH 1ST AVB AND BBB. HS GOAL OF SAFETY ACHIEVED. HOURLY ROUNDING OBSERVED.
[2021-01-16 08:00] VITALS: BP 112/68
--- NOTE | 2021-01-16 11:09 | NUR ---
RECEIVED REPORT AROUND 0715. ASSUMED CARE. VS AND ASSESSMENT CHARTED. IV INTACT. HEART MONITOR ATTACHED AT SR BBB. PT LYING IN BED. BROWN INTACT. MEDS GIVEN PER NOV. PT ABLE TO SWALLOW SMALLER PILLS. CRUSHED PUT IN CHOCOLATE PUDDING. PT TOLERATED A FEW BITES. PT DID NOT EAT BREAKFAST. REFUSED. Q2 TURNS. 3L NC. CALL LIGHT WITHIN REACH. WILL CONTINUE TO MONITOR.
[2021-01-16 12:00] VITALS: BP 109/70
[2021-01-16 16:00] VITALS: BP 118/77
--- NOTE | 2021-01-16 18:29 | NUR ---
NO NEW CHANGES. PT Q2 TURNS. FEEDER. ATE ALL OF JELLO AND ONE BITE OF POT PIE. DRANK TEA. WATER ENCOURAGED. MEDS GIVEN PER. HOURLY ROUNDING PERFORMED. DRESSING ON BOTTOM INTACT. 3L NC. IV INTACT. HEART MONITOR ATTACHED AT BBB. CALL LIGHT WITH IN REACH. WILL CONTINUE TO MONITOR.
[2021-01-16 20:00] VITALS: BP 102/69
[2021-01-17] VITALS: BP 112/68
[2021-01-17 02:26] LABS: URINE BILIRUBIN NEGATIVE (Negative); URINE BLOOD 3+ (Negative); URINE CLARITY CLEAR; URINE COLOR DARK YELLOW; URINE GLUCOSE-RANDOM NEGATIVE (Negative); URINE KETONES NEGATIVE (Negative); URINE LEUKOCYTES-REFLEX TRACE (Negative); URINE NITRITE-REFLEX NEGATIVE (Negative); URINE PROTEIN 1+ (Negative); URINE UROBILINOGEN 0.2 E.U./dl (0.2-1.0)
[2021-01-17 02:53] LABS: CASTS None Seen /LPF (None Seen); SQUAMOUS NONE SEEN /LPF (0-3); URINE RBC >20 Many /HPF (0-2); URINE WBC-REFLEX 6-15 Few /HPF (0-5)
[2021-01-17 02:54] LABS: AMORPHOUS URATES Few /LPF (None Seen)
[2021-01-17 04:07] LABS: HEMATOCRIT 32.5 % (42.0-52.0); HEMOGLOBIN 10.5 gm/dL (14.0-18.0); MCH 29.1 pg (26.0-34.0); MCHC 32.2 g/dL (28.0-37.0); MCV 90.3 fL (80.0-100.0); MPV 8.8 fl. (7.2-11.1); NUCLEATED RBCS 0 /100WBC; PLATELET COUNT* 349 thou/uL (150-400); RDW-CV 13.7 % (10.5-14.5); WBC 15.8 thou/uL (4.0-11.0)
[2021-01-17 04:17] LABS: CALCIUM 8.6 mg/dL (8.5-10.1); CREATININE 1.8 mg/dL (0.6-1.3); POTASSIUM 4.7 mmol/L (3.5-5.1); TOTAL BILIRUBIN 0.7 mg/dL (<0.1-1.0); TOTAL PROTEIN 6.5 g/dL (6.4-8.2)
--- NOTE | 2021-01-17 04:23 | NUR ---
ASSUMED CARE OF PT AFTER REPORT AT 1930. PT A&OX1. CONFUSED. ANXIOUS. 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 VSS. PHYSICAL ASSESSMENT COMPLETED AND CHARTED. PT ON O2 AT 3LNC. PT TRACING SR/SB/BBB/AFIB ON TELE. PT WITH SACRAL SORE-CLEANED, PAT DRY, PHOTOGRAPH TAKEN & COVERED WITH FOAM DRESSING. PT WITH BROWN TO DEPENDENT DRAIN WITH BLOODY OUTPUT-BLOD CLOTS NOTED- FLUSHED BROWN UNTIL BECAME TEA-COLORED/BLOOD TINGED IN COLOR. PT COMPLAINED OF SUPRAPUBIC PAIN- DR LOAIZA MADE AWARE WITH NEW ORDER. URINE SPECIMEN SENT TO LAB. PT TURNED TO SIDES. FALL PRECAUTIONS IN PLACE. CALL LIGHT WITHIN REACH.
[2021-01-17 04:44] VITALS: BP 94/54
[2021-01-17 04:56] LABS: ABSOLUTE EOSINOPHILS 0.3 thou/uL (0.0-0.7); ABSOLUTE LYMPHOCYTES 0.8 thou/uL (0.8-5.3); ABSOLUTE MONOCYTES 1.1 thou/uL (0.0-1.2); ABSOLUTE NEUTROPHILS 13.6 thou/uL (1.6-8.1); PLATELET ESTIMATE ADEQUATE
[2021-01-17 08:00] VITALS: BP 99/68
[2021-01-17 12:00] VITALS: BP 105/76
[2021-01-17 16:00] VITALS: BP 104/68
--- NOTE | 2021-01-17 18:09 | NUR ---
RECEIVED REPORT AROUND 07. ASSUMED CARE. VS AND ASSESSMENT CHARTED. IV INTACT RIGHT FOREARM. INSERTED TODAY. LEFT WRIST IV INFILTRATED. TAKEN OUT. HEART MONITOR ATTACHED AT AFIB. PT LYING IN BED. Q2 TURNS. MEDS GIVEN PER NOV. HOURLY ROUNDING PERFORMED. PT ATE A FEW BITES ON BREAKFAST AND DINNER. ENCOURAGED TO EAT AND DRINK. KEVIN INTACT. SON CALLED THIS SHIFT. UPDATED ON PT. CALL LIGHT WITH IN REACH. WILL CONTINUE TO MONITOR.
[2021-01-17 20:00] VITALS: BP 108/56
[2021-01-18] VITALS: BP 95/68
[2021-01-18 04:00] VITALS: BP 104/58
[2021-01-18 04:25] LABS: ABSOLUTE BASOPHILS 0.1 thou/uL (0.0-0.2); ABSOLUTE EOSINOPHILS 0.4 thou/uL (0.0-0.7); ABSOLUTE LYMPHOCYTES 0.8 thou/uL (0.8-5.3); ABSOLUTE MONOCYTES 1.1 thou/uL (0.0-1.2); ABSOLUTE NEUTROPHILS 10.8 thou/uL (1.6-8.1); ALBUMIN 1.8 g/dL (3.4-5.0); BASOPHILS 0.5 %; CALCIUM 8.2 mg/dL (8.5-10.1); CREATININE 1.9 mg/dL (0.6-1.3); EOSINOPHILS 3.2 %; HEMATOCRIT 29.9 % (42.0-52.0); HEMOGLOBIN 9.9 gm/dL (14.0-18.0); LYMPHOCYTES 6.1 %; MCH 29.7 pg (26.0-34.0); MCV 90.1 fL (80.0-100.0); MONOCYTES 8.1 %; MPV 8.6 fl. (7.2-11.1); NUCLEATED RBCS 0 /100WBC; PLATELET COUNT* 338 thou/uL (150-400); POLYS 82.1 %; POTASSIUM 4.7 mmol/L (3.5-5.1); RBC 3.32 mil/uL (4.50-6.00); RDW-CV 13.7 % (10.5-14.5); TOTAL BILIRUBIN 0.5 mg/dL (<0.1-1.0); TOTAL PROTEIN 6.1 g/dL (6.4-8.2); WBC 13.1 thou/uL (4.0-11.0)
[2021-01-18 04:26] LABS: PREALBUMIN 9.5 mg/dL (18.0-35.7)
--- NOTE | 2021-01-18 04:52 | NUR ---
ASSUMED CARE OF PT AFTER REPORT AT 1930. PT A&OX1. ONLY ORIENTED TO SELF. ANXIOUS & FRUSTRATED. VSS. PHYSICAL ASSESSMENT COMPLETED AND CHARTED. PT ON O2 AT 2L NC. PT TRACING AFIB ON TELE. PT WITH BROWN TO DEPENDENT DRAIN. PT COMPLAINED OF GENERALIZED BODY PAIN-MED GIVEN PER NOV. PT CLAIMED HE FEELS MISERABLE AND DID NOT SLEEP FOR NIGHTS-REQUESTED FOR SLEEPING AID- DR TAYLOR MADE AWARE WITH NEW ORDER. PT ABLE TO SLEEP WELL ON BED. FALL PRECAUTIONS IN PLACE. CALL LIGHT WITHIN REACH.
[2021-01-18 09:00] VITALS: BP 129/76
[2021-01-18 12:02] VITALS: BP 117/66
--- NOTE | 2021-01-18 12:20 | 2DMMODE ---
[place] [address] 2 D/M-MODE ECHOCARDIOGRAM Name: LIGHTBRENDA Annabelle Room: [address] IN M.R.#: [id number] Admission: 01/14/21 Attend Phys: Jame Chen Discharge: Date of : 34 Date of Service: 01/18/21 1220 Report #: [id number] THIS REPORT FOR: cc: zAam Healy MD, Jason MD Holkins,Woody Muhammad MD [facility] ~ APPROVED REPORT Study performed: 01/18/2021 10:21:24 EXAM: Comprehensive 2D, Doppler, and color-flow Echocardiogram Patient Location: Bedside BSA: 2.18 HR: 71 bpm BP: 104/58 mmHg Other Information Study Quality: Technically Limited Technically limited study due to inability to position patient, uncooperative patient. Indications Non STEMI 2D Dimensions IVSd: 21.27 (7-11mm) LVOT Diam: 18.72 (18-24mm) LVDd: 45.50 mm PWd: 12.83 (7-11mm) Ascending Ao: 35.20 (22-36mm) LVDs: 32.47 (25-40mm) Aortic Root: 29.47 mm Volumes Left Atrial Volume (Systole) LA ESV Index: 25.70 mL/m2 Aortic Valve AoV Peak García.: 1.76 m/s AO Peak Gr.: 12.45 mmHg LVOT Max P.39 mmHg AO Mean Gr.: 6.97 mmHg LVOT Mean P.18 mmHg LVOT Max V: 0.77 m/s AO V2 VTI: 27.07 cm LVOT Mean V: 0.50 m/s LEIGH (VTI): 1.30 cm2 LVOT V1 VTI: 12.80 [place] [address] 2 D/M-MODE ECHOCARDIOGRAM Name: BRENDA LIGHT Room: [address] IN ..#: [id number] Admission: 01/14/21 Attend Phys: Jame Chen Discharge: Date of : 33 Date of Service: 01/18/21 1220 Report #: [id number] Mitral Valve E/A Ratio: 1.00 MV Decel. Time: 233.44 ms MV E Max García.: 0.79 m/s MV PHT: 67.70 ms MVA (PHT): 3.25 cm2 TDI E/Lateral E': 8.78 E/Medial E': 13.17 Medial E' García.: 0.06 m/s Lateral E' García.: 0.09 m/s Pulmonary Valve PV Peak García.: 0.63 m/s PV Peak Gr.: 1.58 mmHg Tricuspid Valve RAP Estimate: 20.00 mmHg TR Peak Gr.: 28.50 mmHg RVSP: 48.50 mmHg PA Pressure: 48.50 mmHg Left Ventricle The left ventricle is normal size. There are segmental wall motion abnormalities with distal septal and apical akinesis. Borderline concentric left ventricular hypertrophy. Left ventricular systolic function is moderately decreased. LVEF is 35%. Right Ventricle The right ventricle is normal size. The right ventricular systolic function is normal. Atria The left atrium size is normal. The right atrium size is normal. Aortic Valve The aortic valve is normal in structure. No aortic regurgitation is present. There is no aortic valvular stenosis. Mitral Valve There is mitral annular calcification. Mild mitral regurgitation. No evidence of mitral valve stenosis. Tricuspid Valve The tricuspid valve is normal in structure. Trace [place]icus[place] [address] 2 D/M-MODE ECHOCARDIOGRAM Name: BRENDA LIGHT Room: [address] IN [facility]#: [id number] Admission: 01/14/21 Attend Phys: Jame Chen Discharge: Date of : 33 Date of Service: 01/18/21 1220 Report #: [id number] Pulmonic Valve The pulmonary valve is normal in structure. There is no pulmonic valvular regurgitation. Great Vessels The aortic root is normal in size. IVC is dilated. Pericardium Trace pericardial effusion. Pleural effusion noted. <Conclusion> The left ventricle is normal size. Borderline concentric left ventricular hypertrophy. Left ventricular systolic function is moderately decreased. LVEF is 35%. The right ventricle is normal size. The left atrium size is normal. The aortic valve is normal in structure. There is mitral annular calcification. Mild mitral regurgitation. The tricuspid valve is normal in structure. IVC is dilated. There are segmental wall motion abnormalities with distal septal and apical akinesis. Pleural effusion noted. <ELECTRONICALLY SIGNED> By: Woody Toussaint MD, [facility] 01/18/21 1220 1220 1220 Woody Toussaint MD, [facility] /INF
--- NOTE | 2021-01-18 13:36 | NUR ---
LAURENT spoke with Pt's son and , plan is for Pt to dc to [facility] [place] [facility]. Son states that he is working with [employer] for JOSE romeo, LAURENT called and spoke with nicolle Chávez to confirm, Pt's surplus for January is $1537.73 and per son, family is able to afford. LAURENT spoke with Leidy at [facility], they are able to accept Pt tomorrow. Pt will admit to [facility].
--- NOTE | 2021-01-18 15:23 | EKG ---
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 : 1935 Requested By: Tuan Arredondo Order Number: [id number] Vianca MD: Woody Toussaint Measurements Intervals [place] Rate: 108 P: SD: QRS: 91 QRSD: 168 T: 36 QT: 406 QTc: 544 Interpretive Statements Atrial fibrillation Right bundle branch block Compared to ECG 01/14/2021 17:25:43 Sinus rhythm no longer present Myocardial infarct finding persists Atrial premature complex(es) no longer present Electronically Signed On 01-18-2021 15:23:26 CDT by Woody Toussaint [email or web address] <ELECTRONICALLY SIGNED> By: Woody Toussaint MD, [facility] 01/18/21 1523 0849 0849 Woody Toussaint MD, [facility] /EPI
[2021-01-18 16:37] VITALS: BP 130/67
--- NOTE | 2021-01-18 18:48 | NUR ---
ASSUMED PT CARE AT 0730. ASSESSMENT COMPLETED, PT WITH NO BM, PRN MIRALAX GIVEN AND PHYSICIAN NOTIFIED AND A ONE TIME ORDER RECIEVED TO ADMINISTER A DUCOLAX SUPPOSITORY X1. FLUIDS ENCOURAGED. PT WITH POOR APPETITE, NEW ORDER FOR NUTRITION SUPPLEMENT ORDERED AND OFFERED. PT ASSISTED TO TURN AND REPOSITION Q2H. DRESSING TO SACRUM IS DRY AND INTACT. PT WORKED WITH PHYSICAL THERAPY TODAY. BROWN IS PATENT AND DRAINING LIGHT YELLOW URINE.SAFETY MEASURES IN PLACE.
[2021-01-19 00:04] VITALS: BP 124/79
[2021-01-19 11:24] VITALS: BP 124/79
--- NOTE | 2021-01-19 12:57 | EKG ---
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 : 1935 Requested By: Miuqel Briscoe Order Number: [id number] Vianca MD: Woody Toussaint Measurements Intervals [place] Rate: 95 P: AR: QRS: 70 QRSD: 144 T: 34 QT: 313 QTc: 394 Interpretive Statements Atrial fibrillation with a moderate ventricular response Right bundle branch block Compared to ECG 01/17/2021 08:49:40 The ventricular response to atrial fibrillation has slowed Electronically Signed On 01-19-2021 12:56:43 CDT by Woody Toussaint [email or web address] <ELECTRONICALLY SIGNED> By: Woody Toussaint MD, [facility] 01/19/21 1256 Woody Toussaint MD, [facility] /EPI
--- NOTE | 2021-01-19 13:17 | NUR ---
Pt discharging to [facility] at 1330 via ambulance. Faxed dc orders. Chart copied. Nurse report number provided, [phone]. Updated Pt's son. [facility] hospice here to [place], to start care a LTC.
[2021-01-19] MEDS ORDERED: AMIODARONE HCL400 MG PO (13:22)
--- NOTE | 2021-01-19 14:40 | NUR ---
ASSUMD PT CARE AT 0730. PT ASSESSED AND ASSISTED WITH REPOSITIONING TO PROMOTE COMFORT. PT C/O CHEST PAIN, EKG OBTAINED AND VS, REULTS GIVEN TO PHYSICIAN. NEW ORDERS RECIEVED AND IMPLEMENTED, HOSPICE HERE TO [facility] AND PT TO BE TRANSFERRED TO [facility]. PT C/O PAIN AND PRN MED GIVEN WITH PARTIAL RELIEF. EMS TO TRANSFER PT, PT DISCHARGED AT APPROX 1430. REPORT GIVEN TO ZAIRA AT [facility].
--- NOTE | 2021-01-19 15:50 | NUR ---
PT. DISCHARGED TO [facility] WITH [facility] PRIOR TO O.T. EVAL. PLEASE ORDER FURTHER O.T. SERVICES IF NEEDED.
== END 2021-01-19 13:57 | disposition hospice, home (50) | DRG 177 ==
LOC: M.ERS 17:22 → M.TBA-ER 18:31 → M.2W 18:31
PROVIDERS: Emergency Medicine Emergency Medical Services; Internal Medicine; Internal Medicine Cardiovascular Disease; ADMIT Internal Medicine; ATTEND Internal Medicine
DX: J69.0 Pneumonitis due to inhalation of food and vomit (principal); I21.4 Non-ST elevation (NSTEMI) myocardial infarction; G93.41 Metabolic encephalopathy; I50.43 Acute on chronic combined systolic (congestive) and diastolic (congestive) heart failure; I13.0 Hypertensive heart and chronic kidney disease with heart failure and stage 1 through stage 4 chronic kidney disease, or unspecified chronic kidney disease; N17.9 Acute kidney failure, unspecified; I48.92 Unspecified atrial flutter; L89.92 Pressure ulcer of unspecified site, stage 2; F03.90 Unspecified dementia, unspecified severity, without behavioral disturbance, psychotic disturbance, mood disturbance, and anxiety; E78.5 Hyperlipidemia, unspecified; N18.30 Chronic kidney disease, stage 3 unspecified; I34.0 Nonrheumatic mitral (valve) insufficiency; N40.0 Benign prostatic hyperplasia without lower urinary tract symptoms; J44.9 Chronic obstructive pulmonary disease, unspecified; D72.829 Elevated white blood cell count, unspecified; I48.91 Unspecified atrial fibrillation; E11.22 Type 2 diabetes mellitus with diabetic chronic kidney disease; R31.9 Hematuria, unspecified; Z20.822 Contact with and (suspected) exposure to COVID-19; Z79.899 Other long term (current) drug therapy; Z79.01 Long term (current) use of anticoagulants; Z95.5 Presence of coronary angioplasty implant and graft; Z79.4 Long term (current) use of insulin; Z95.1 Presence of aortocoronary bypass graft; Z86.718 Personal history of other venous thrombosis and embolism